=== PATIENT | male | born 1955 | race Caucasian/White ===

== ENCOUNTER 2021-04-12 16:38 | Inpatient (IN) | payer SELFPAY ==
--- NOTE | 2021-04-12 17:00 | EDM.PDOC ---
ED HPI GENERAL MEDICAL PROBLEM - General Chief Complaint: Neuro Symptoms/Deficits Stated Complaint: LT SIDE NUMB, SLURRING WORDS Time Seen by Provider: 04/12/21 16:50 Source of Information: Reports: Patient History Limitations: Reports: No Limitations - History of Present Illness INITIAL COMMENTS - FREE TEXT/NARRATIVE: Patient is a 65-year-old male who presented as a stroke alert. Patient has some left arm numbness and said he felt different also some left-sided facial droop. History with his daughter is speech was changed place patient is speaking clearly here. Patient denies any right-sided weakness or numbness no vision changes or sensation changes. - Related Data Allergies Allergy/AdvReac Type Severity Reaction Status Date / Time No Known Allergies Allergy Verified 04/12/21 17:20 Home Meds: Home Meds Cyanocobalamin (Vitamin B-12) [Vitamin B-12] 04/12/21 [History] Furosemide [Lasix] 20 mg PO 04/12/21 [History] Metoprolol Succinate 50 mg PO 04/12/21 [History] Spironolactone [Aldactone] 25 mg PO 04/12/21 [History] lisinopriL [Lisinopril] 10 mg PO 04/12/21 [History] ED ROS GENERAL - Review of Systems Review Of Systems: See Below Constitutional: Reports: No Symptoms HEENT: Reports: No Symptoms Respiratory: Reports: No Symptoms Cardiovascular: Reports: No Symptoms Endocrine: Reports: No Symptoms GI/Abdominal: Reports: No Symptoms : Reports: No Symptoms Musculoskeletal: Reports: No Symptoms Skin: Reports: No Symptoms Neurological: Reports: Numbness, Weakness Psychiatric: Reports: No Symptoms Hematologic/Lymphatic: Reports: No Symptoms Immunologic: Reports: No Symptoms ED EXAM, NEURO - Physical Exam Exam: See Below Exam Limited By: No Limitations General Appearance: Alert, WD/WN, No Apparent Distress Eye Exam: Bilateral Eye: EOMI, PERRL Throat/Mouth: Normal Inspection Head Exam: Atraumatic Neck: Normal Inspection Respiratory/Chest: No Respiratory Distress, Lungs Clear, Normal Breath Sounds Cardiovascular: Normal Peripheral Pulses, Regular Rate, Rhythm GI/Abdominal: Normal Bowel Sounds, Soft, Non-Tender Neurological: Alert, Normal Mood/Affect, Normal Dorsiflexion, CN II-XII Intact, Normal Plantar Flexion, Normal Gait, Normal Reflexes, Oriented x 3, Abnormal Motor (Slight weakness of left upper extremity only other extremities strength 5 out of 5) Extremities: Normal Inspection Course - Vital Signs Last Recorded V/S: Last Vital Signs Temp 96.5 F L 04/12/21 16:40 Pulse 83 04/12/21 18:21 Resp 20 04/12/21 16:40 BP 140/72 04/12/21 18:21 Pulse Ox 96 04/12/21 18:21 - Orders/Labs/Meds Orders: Active Orders 24 hr Category Date Time Status CORONAVIRUS COVID-19 MAGAN [MOLEC] Stat Lab 04/12/21 18:00 Received Labs: Laboratory Tests 04/12/21 04/12/21 04/12/21 Range/Units 16:48 16:48 17:54 WBC 8.84 (4.0-11.0) K/uL RBC 4.70 (4.50-5.90) M/uL Hgb 12.2 L (13.0-17.0) g/dL Hct 39.9 (38.0-50.0) % MCV 84.9 (80.0-98.0) fL MCH 26.0 L (27.0-32.0) pg MCHC 30.6 L (31.0-37.0) g/dL RDW Std Deviation 48.5 (28.0-62.0) fl RDW Coeff of Kassie 16 H (11.0-15.0) % Plt Count 214 (150-400) K/uL MPV 10.10 (7.40-12.00) fL Neut % (Auto) 72.5 (48.0-80.0) % Lymph % (Auto) 16.6 (16.0-40.0) % [place] % (Auto) 6.2 (0.0-15.0) % Eos % (Auto) 4.2 (0.0-7.0) % Baso % (Auto) 0.5 (0.0-1.5) % Neut # (Auto) 6.4 H (1.4-5.7) K/uL Lymph # (Auto) 1.5 (0.6-2.4) K/uL [place] # (Auto) 0.6 (0.0-0.8) K/uL Eos # (Auto) 0.4 (0.0-0.7) K/uL Baso # (Auto) 0.0 (0.0-0.1) K/uL Nucleated RBC % 0.0 /100WBC Nucleated RBCs # 0 K/uL Sodium 141 (136-148) mmol/L Potassium 4.6 (3.5-5.1) mmol/L Chloride 105 (98-107) mmol/L Carbon Dioxide 31.0 (21.0-32.0) mmol/L BUN 24 H (7.0-18.0) mg/dL Creatinine 1.0 (0.8-1.3) mg/dL Est Cr Clr Drug Dosing 78.44 mL/min Estimated GFR (MDRD) > 60.0 ml/min Glucose 134 H (74-106) mg/dL Calcium 8.5 (8.5-10.1) mg/dL Phosphorus 2.8 (2.6-4.7) mg/dL Magnesium 2.3 (1.8-2.4) mg/dL Total Bilirubin 0.3 (0.2-1.0) mg/dL AST 15 (15-37) IU/L ALT 32 (14-63) IU/L Alkaline Phosphatase 68 (46-116) U/L Total Protein 7.7 (6.4-8.2) g/dL Albumin 3.6 (3.4-5.0) g/dL Globulin 4.1 H (2.6-4.0) g/dL Albumin/Globulin Ratio 0.9 (0.9-1.6) Lipase 84 (73-393) U/L Urine Opiates Screen NEGATIVE (NEGATIVE) Ur Oxycodone Screen NEGATIVE (NEGATIVE) Urine Methadone Screen NEGATIVE (NEGATIVE) Ur Barbiturates Screen NEGATIVE (NEGATIVE) Ur Phencyclidine Scrn NEGATIVE (NEGATIVE) Ur Amphetamine Screen NEGATIVE (NEGATIVE) U Methamphetamines Scrn NEGATIVE (NEGATIVE) U Benzodiazepines Scrn NEGATIVE (NEGATIVE) U Cocaine Metab Screen NEGATIVE (NEGATIVE) U Marijuana (THC) Screen NEGATIVE (NEGATIVE) Ethyl Alcohol < 3.0 mg/dL Meds: Medications Discontinued Medications Generic Name Dose Route Start Last Admin Trade Name Freq PRN Reason Stop Dose Admin Iopamidol 100 ml 04/12/21 17:22 04/12/21 17:22 Iopamidol 755 Mg/Ml 500 Ml Multipack Bottle IVPUSH 04/12/21 17:23 100 ml ONETIME STA Administration - Re-Assessments/Exams Free Text/Narrative Re-Assessment/Exam: 04/12/21 18:25 After discussion with the patient and his daughter about why we did not give TPA they agree with not use any medication as he only has some left arm numbness and has got good movement against raising his arm now which has improved his speech is still slightly slurred but his NIH stroke scale is low but did not warrant TPA at this time we will admit for MRI and further work-up. Departure - Departure Time of Disposition: 18:26 Disposition: Admitted As Inpatient 66 Condition: Good Clinical Impression: Stroke - Discharge Information *PRESCRIPTION DRUG MONITORING PROGRAM REVIEWED*: Not Applicable *COPY OF PRESCRIPTION DRUG MONITORING REPORT IN PATIENT BREANA: Not Applicable Instructions: Stroke Prevention Referrals: PCP,None [Primary Care Provider] - Forms: ED Department Discharge Critical Care Note - Critical Care Note Total Time (mins): 45 Comments: Critical Care Procedure Note Authorized and Performed by: Dr. Silverio Total critical care time: Approximately Due to a high probability of clinically significant, life threatening deterioration, the patient required my highest level of preparedness to intervene emergently and I personally spent this critical care time directly and personally managing the patient. This critical care time included obtaining a history; examining the patient; pulse oximetry; ordering and review of studies; arranging urgent treatment with development of a management plan; evaluation of patient's response to treatment; frequent reassessment; and, discussions with other providers. This critical care time was performed to assess and manage the high probability of imminent, life-threatening deterioration that could result in multi-organ failure. It was exclusive of separately billable procedures and treating other patients and teaching time. Sepsis Event Note (ED) - Focused Exam Vital Signs: Vital Signs Temp Pulse Resp BP Pulse Ox 04/12/21 18:21 83 140/72 96 04/12/21 17:45 82 130/58 L 97 04/12/21 16:50 75 127/63 96 04/12/21 16:40 96.5 F L 85 20 141/76 H 88 L - My Orders Last 24 Hours: My Active Orders 04/12/21 18:00 CORONAVIRUS COVID-19 MAGAN [MOLEC] Stat - Assessment/Plan Last 24 Hours: My Active Orders 04/12/21 18:00 CORONAVIRUS COVID-19 MAGAN [MOLEC] Stat Plan: Patient is a 65-year-old male who presents today for stroke alert. Patient has some left arm weakness patient has good strength in the other 3 extremities. He has a slight facial droop on the left side as patient is well. Will obtain CT his labs reassess at this time his NIH stroke scale the 2 at this time do not warrant TPA.
--- NOTE | 2021-04-12 17:16 | CT ---
INDICATION: Stroke. COMPARISON: None. TECHNIQUE: Noncontrast CT head. FINDINGS: Normal brain parenchymal morphology. Patchy low-attenuation change within the white matter consistent with chronic small ischemic changes. No acute intracranial hemorrhage, acute infarct, mass effect, or fracture. No midline shift. No abnormal ventricular dilatation. Normal calvarium and skull base. Visualized paranasal sinuses and mastoid air cells are clear. Mild degenerative changes of the bilateral temporomandibular joints. Normal orbits bilaterally. IMPRESSION: 1. No acute intracranial abnormality. 2. Normal brain parenchymal morphology. Chronic deep white matter small vessel ischemic changes Please note that all CT scans at this facility use dose modulation, iterative reconstruction, and/or weight-based dosing when appropriate to reduce radiation dose to as low as reasonably achievable. Dictated by Rubio Peraza MD @ 04/12/2021 5:14:40 PM (Electronically Signed)
[2021-04-12] MEDS ORDERED: Iopamidol 755 MG/ML 500 ML Multipack Bottle IVPUSH STA (17:22)
--- NOTE | 2021-04-12 17:22 | CT ---
DATE: 04/12/2021. CLINICAL HISTORY: Acute neurological deficit. TECHNIQUE: Standard helical CT image acquisition through the head and neck was performed after intravenous contrast bolus enhancement. Multiplanar reconstructed images were performed and interpreted. COMPARISON: None available. FINDINGS: The origins of the great vessels from the aortic arch are patent. The origins of the vertebral arteries are not well assessed due to artifact. The common carotid arteries are patent. Mild (less than 50 percent) atherosclerotic luminal stenosis of the proximal right internal carotid artery by NASCET criteria. The more distal cervical segments of the internal carotid arteries are patent. The cervical segments of the vertebral arteries are patent. No intracranial proximal large vessel occlusion or flow-limiting luminal stenosis. There is a 2 mm right MCA bifurcation aneurysm. The visualized lung apices are unremarkable. Left-sided cardiac pacer. The thyroid gland is unremarkable. Degenerative changes of the cervical spine. IMPRESSION: 1. No intracranial proximal large vessel occlusion or flow-limiting luminal stenosis. 2. Mild (less than 50 percent) atherosclerotic luminal stenosis of the proximal right ICA by NASCET criteria. 3. 2mm right MCA bifurcation aneurysm. For consultation with our Neurointerventional service at [facility], for enrollment into our aneurysm surveillance program, please call [phone] to schedule a telehealth appointment. Please note that all CT scans at this facility use dose modulation, iterative reconstruction, and/or weight-based dosing when appropriate to reduce radiation dose to as low as reasonably achievable. Dictated by Felipe Salguero MD @ 04/12/2021 10:09:52 PM (Electronically Signed)
--- NOTE | 2021-04-12 17:22 | CT ---
DATE: 04/12/2021. CLINICAL HISTORY: Acute neurological deficit. TECHNIQUE: Standard helical CT image acquisition through the head and neck was performed after intravenous contrast bolus enhancement. Multiplanar reconstructed images were performed and interpreted. COMPARISON: None available. FINDINGS: The origins of the great vessels from the aortic arch are patent. The origins of the vertebral arteries are not well assessed due to artifact. The common carotid arteries are patent. Mild (less than 50 percent) atherosclerotic luminal stenosis of the proximal right internal carotid artery by NASCET criteria. The more distal cervical segments of the internal carotid arteries are patent. The cervical segments of the vertebral arteries are patent. No intracranial proximal large vessel occlusion or flow-limiting luminal stenosis. There is a 2 mm right MCA bifurcation aneurysm. The visualized lung apices are unremarkable. Left-sided cardiac pacer. The thyroid gland is unremarkable. Degenerative changes of the cervical spine. IMPRESSION: 1. No intracranial proximal large vessel occlusion or flow-limiting luminal stenosis. 2. Mild (less than 50 percent) atherosclerotic luminal stenosis of the proximal right ICA by NASCET criteria. 3. 2mm right MCA bifurcation aneurysm. For consultation with our Neurointerventional service at [facility], for enrollment into our aneurysm surveillance program, please call [phone] to schedule a telehealth appointment. Please note that all CT scans at this facility use dose modulation, iterative reconstruction, and/or weight-based dosing when appropriate to reduce radiation dose to as low as reasonably achievable. Dictated by Felipe Salguero MD @ 04/12/2021 10:09:23 PM (Electronically Signed)
[2021-04-12 17:28] LABS: BLOOD UREA NITROGEN,BUN 24 mg/dL (7.0-18.0); CHLORIDE,CL 105 mmol/L (98-107); GLUCOSE RANDOM 134 mg/dL (74-106); LIPASE 84 U/L (73-393); POTASSIUM,K 4.6 mmol/L (3.5-5.1); SODIUM,NA 141 mmol/L (136-148)
--- NOTE | 2021-04-12 18:50 | PCM.EKG ---
#1 Interpretation EKG Date: 04/12/21 Time: 18:45 Rhythm: NSR Rate (Beats/Min): 71 ST-T: Normal
--- NOTE | 2021-04-12 19:52 | CR ---
HISTORY: Stroke. TECHNIQUE: One view of the chest. COMPARISON: No prior. FINDINGS: AICD. Heart size within normal limits. No acute lung infiltrate or pulmonary edema. No pneumothorax. No moderate or large pleural effusion. IMPRESSION: 1. No acute disease. 2. AICD. Dictated by Lauro Naqvi MD @ 04/12/2021 7:51:48 PM Dictated by: Lauro Naqvi MD @ 04/12/2021 19:51:52 (Electronically Signed)
--- NOTE | 2021-04-12 21:53 | PCM.HP.2 ---
H&P History of Present Illness - General Date of Service: 04/12/21 Admit Problem/Dx: Admission Diagnosis/Problem Admission Diagnosis/Problem Stroke-like symptoms - History of Present Illness Initial Comments - Free Text/Narative: 65 yo male with pmh of CHF, pacemaker defibrillator, and a.fib who presents to the ED with complaints of right arm weakness. Patient reports he is unable to control his hand and is moves his hand past the point he wants. CT of the head reports no acute intracranial abnormality. CTA head and neck reports no high grade stenosis or occlusion. Patient reports he has been on Coumadin in the past but he did not tolerate it well and is unable to give specifics of why it was stopped. - Related Data Allergies/Adverse Reactions: Allergies Allergy/AdvReac Type Severity Reaction Status Date / Time No Known Allergies Allergy Verified 04/12/21 17:20 Home Medications: Home Meds Cyanocobalamin (Vitamin B-12) [Vitamin B-12] 04/12/21 [History] Furosemide [Lasix] 20 mg PO 04/12/21 [History] Metoprolol Succinate 50 mg PO 04/12/21 [History] Spironolactone [Aldactone] 25 mg PO 04/12/21 [History] lisinopriL [Lisinopril] 10 mg PO 04/12/21 [History] Past Medical History Cardiovascular History: Reports: Afib - Infectious Disease History Infectious Disease History: Reports: None - Past Surgical History Other GI Surgeries/Procedures: gastric bypass surgery Social & Family History - Family History Family Medical History: No Pertinent Family History - Tobacco Use Tobacco Use Status *Q: Current Every Day Tobacco User Years of Tobacco use: 50 Packs/Tins Daily: 1 H&P Review of Systems - Review of Systems: Review Of Systems: Comprehensive ROS is negative, except as noted in HPI. 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 has finger past pointing) - Patient Data Lab Results Last 24 hrs: Laboratory Results - last 24 hr 04/12/21 04/12/21 04/12/21 Range/Units 16:48 16:48 17:54 WBC 8.84 (4.0-11.0) K/uL RBC 4.70 (4.50-5.90) M/uL Hgb 12.2 L (13.0-17.0) g/dL Hct 39.9 (38.0-50.0) % MCV 84.9 (80.0-98.0) fL MCH 26.0 L (27.0-32.0) pg MCHC 30.6 L (31.0-37.0) g/dL RDW Std Deviation 48.5 (28.0-62.0) fl RDW Coeff of Kassie 16 H (11.0-15.0) % Plt Count 214 (150-400) K/uL MPV 10.10 (7.40-12.00) fL Neut % (Auto) 72.5 (48.0-80.0) % Lymph % (Auto) 16.6 (16.0-40.0) % [place] % (Auto) 6.2 (0.0-15.0) % Eos % (Auto) 4.2 (0.0-7.0) % Baso % (Auto) 0.5 (0.0-1.5) % Neut # (Auto) 6.4 H (1.4-5.7) K/uL Lymph # (Auto) 1.5 (0.6-2.4) K/uL [place] # (Auto) 0.6 (0.0-0.8) K/uL Eos # (Auto) 0.4 (0.0-0.7) K/uL Baso # (Auto) 0.0 (0.0-0.1) K/uL Nucleated RBC % 0.0 /100WBC Nucleated RBCs # 0 K/uL Sodium 141 (136-148) mmol/L Potassium 4.6 (3.5-5.1) mmol/L Chloride 105 (98-107) mmol/L Carbon Dioxide 31.0 (21.0-32.0) mmol/L BUN 24 H (7.0-18.0) mg/dL Creatinine 1.0 (0.8-1.3) mg/dL Est Cr Clr Drug Dosing 78.44 mL/min Estimated GFR (MDRD) > 60.0 ml/min Glucose 134 H (74-106) mg/dL Calcium 8.5 (8.5-10.1) mg/dL Phosphorus 2.8 (2.6-4.7) mg/dL Magnesium 2.3 (1.8-2.4) mg/dL Total Bilirubin 0.3 (0.2-1.0) mg/dL AST 15 (15-37) IU/L ALT 32 (14-63) IU/L Alkaline Phosphatase 68 (46-116) U/L Total Protein 7.7 (6.4-8.2) g/dL Albumin 3.6 (3.4-5.0) g/dL Globulin 4.1 H (2.6-4.0) g/dL Albumin/Globulin Ratio 0.9 (0.9-1.6) Lipase 84 (73-393) U/L Urine Opiates Screen NEGATIVE (NEGATIVE) Ur Oxycodone Screen NEGATIVE (NEGATIVE) Urine Methadone Screen NEGATIVE (NEGATIVE) Ur Barbiturates Screen NEGATIVE (NEGATIVE) Ur Phencyclidine Scrn NEGATIVE (NEGATIVE) Ur Amphetamine Screen NEGATIVE (NEGATIVE) U Methamphetamines Scrn NEGATIVE (NEGATIVE) U Benzodiazepines Scrn NEGATIVE (NEGATIVE) U Cocaine Metab Screen NEGATIVE (NEGATIVE) U Marijuana (THC) Screen NEGATIVE (NEGATIVE) Ethyl Alcohol < 3.0 mg/dL SARS-CoV-2 RNA (MAGAN) (NEGATIVE) 04/12/21 Range/Units 18:00 WBC (4.0-11.0) K/uL RBC (4.50-5.90) M/uL Hgb (13.0-17.0) g/dL Hct (38.0-50.0) % MCV (80.0-98.0) fL MCH (27.0-32.0) pg MCHC (31.0-37.0) g/dL RDW Std Deviation (28.0-62.0) fl RDW Coeff of Kassie (11.0-15.0) % Plt Count (150-400) K/uL MPV (7.40-12.00) fL Neut % (Auto) (48.0-80.0) % Lymph % (Auto) (16.0-40.0) % [place] % (Auto) (0.0-15.0) % Eos % (Auto) (0.0-7.0) % Baso % (Auto) (0.0-1.5) % Neut # (Auto) (1.4-5.7) K/uL Lymph # (Auto) (0.6-2.4) K/uL [place] # (Auto) (0.0-0.8) K/uL Eos # (Auto) (0.0-0.7) K/uL Baso # (Auto) (0.0-0.1) K/uL Nucleated RBC % /100WBC Nucleated RBCs # K/uL Sodium (136-148) mmol/L Potassium (3.5-5.1) mmol/L Chloride (98-107) mmol/L Carbon Dioxide (21.0-32.0) mmol/L BUN (7.0-18.0) mg/dL Creatinine (0.8-1.3) mg/dL Est Cr Clr Drug Dosing mL/min Estimated GFR (MDRD) ml/min Glucose (74-106) mg/dL Calcium (8.5-10.1) mg/dL Phosphorus (2.6-4.7) mg/dL Magnesium (1.8-2.4) mg/dL Total Bilirubin (0.2-1.0) mg/dL AST (15-37) IU/L ALT (14-63) IU/L Alkaline Phosphatase (46-116) U/L Total Protein (6.4-8.2) g/dL Albumin (3.4-5.0) g/dL Globulin (2.6-4.0) g/dL Albumin/Globulin Ratio (0.9-1.6) Lipase (73-393) U/L Urine Opiates Screen (NEGATIVE) Ur Oxycodone Screen (NEGATIVE) Urine Methadone Screen (NEGATIVE) Ur Barbiturates Screen (NEGATIVE) Ur Phencyclidine Scrn (NEGATIVE) Ur Amphetamine Screen (NEGATIVE) U Methamphetamines Scrn (NEGATIVE) U Benzodiazepines Scrn (NEGATIVE) U Cocaine Metab Screen (NEGATIVE) U Marijuana (THC) Screen (NEGATIVE) Ethyl Alcohol mg/dL SARS-CoV-2 RNA (MAGAN) NEGATIVE (NEGATIVE) Result Diagrams: 04/13/21 05:20 04/13/21 05:20 Sepsis Event Note - Evaluation Sepsis Screening Result: No Definite Risk - Focused Exam Vital Signs: Vital Signs Temp Pulse Resp BP Pulse Ox 04/12/21 20:17 73 18 141/72 H 96 04/12/21 19:30 70 20 138/63 93 L 04/12/21 18:21 83 140/72 96 04/12/21 17:45 82 130/58 L 97 04/12/21 16:50 75 127/63 96 04/12/21 16:40 35.8 C L 85 20 141/76 H 88 L Problem List Initiated/Reviewed/Updated: Yes Orders Last 24hrs: Active Orders 24 hr Category Date Time Status Patient Status [ADT] Routine ADT 04/12/21 18:27 Active Antiembolic Devices [RC] PER UNIT ROUTINE Care 04/12/21 21:49 Ordered Oxygen Therapy [RC] PRN Care 04/12/21 21:45 Ordered Up ad Mary [RC] ASDIRECTED Care 04/12/21 21:45 Ordered VTE/DVT Education [RC] PER UNIT ROUTINE Care 04/12/21 21:45 Ordered Vital Signs [RC] Q4H Care 04/12/21 21:45 Ordered OT Evaluation and Treatment [CONS] Routine Cons 04/12/21 21:45 Ordered PT Evaluation and Treatment [CONS] Routine Cons 04/12/21 21:45 Ordered Regular Diet [DIET] Diet 04/12/21 Breakfast Ordered BASIC METABOLIC PANEL,BMP [CHEM] AM Lab 04/13/21 05:11 Ordered CBC W/O DIFF,HEMOGRAM [HEME] AM Lab 04/13/21 05:11 Ordered Furosemide [Lasix] Med 04/12/21 21:45 Unverified DOSE UNIT RTE FREQ Sequential Compression Device [OM.PC] Per Unit Routine Oth 04/12/21 21:46 Ordered Resuscitation Status Routine Resus Stat 04/12/21 21:45 Ordered Assessment/Plan Comment:: 65 yo male admitted for CVA. We will monitor on telemetry, treat with ASA, and consult PT/OT.
[2021-04-12] MEDS: Aspirin 325 MG Tab PO SCH (22:00)
[2021-04-13 06:58] LABS: BLOOD UREA NITROGEN,BUN 18 mg/dL (7.0-18.0); CARBON DIOXIDE,CO2 32.5 mmol/L (21.0-32.0); CHLORIDE,CL 104 mmol/L (98-107); GLUCOSE RANDOM 135 mg/dL (74-106); POTASSIUM,K 4.3 mmol/L (3.5-5.1); SODIUM,NA 140 mmol/L (136-148)
[2021-04-13] MEDS: Furosemide 20 MG Tab PO SCH (09:46)
--- NOTE | 2021-04-13 10:13 | PCM.PN ---
- General Info Date of Service: 04/13/21 - Review of Systems Systems Review Comment:: arm coordination improving, no shortness of breath, - Patient Data Vitals - Most Recent: Last Vital Signs Temp 35.6 C L 04/13/21 08:00 Pulse 72 04/13/21 08:00 Resp 20 04/13/21 08:00 BP 132/68 04/13/21 08:00 Pulse Ox 96 04/13/21 08:00 Weight - Most Recent: 140.614 kg I&O - Last 24 Hours: Intake & Output 04/12/21 04/13/21 04/13/21 22:59 06:59 14:59 Intake Total 250 Balance 250 Lab Results Last 24 Hours: Laboratory Results - last 24 hr 04/12/21 04/12/21 04/12/21 Range/Units 16:48 16:48 17:54 WBC 8.84 (4.0-11.0) K/uL RBC 4.70 (4.50-5.90) M/uL Hgb 12.2 L (13.0-17.0) g/dL Hct 39.9 (38.0-50.0) % MCV 84.9 (80.0-98.0) fL MCH 26.0 L (27.0-32.0) pg MCHC 30.6 L (31.0-37.0) g/dL RDW Std Deviation 48.5 (28.0-62.0) fl RDW Coeff of Kassie 16 H (11.0-15.0) % Plt Count 214 (150-400) K/uL MPV 10.10 (7.40-12.00) fL Neut % (Auto) 72.5 (48.0-80.0) % Lymph % (Auto) 16.6 (16.0-40.0) % Rooks % (Auto) 6.2 (0.0-15.0) % Eos % (Auto) 4.2 (0.0-7.0) % Baso % (Auto) 0.5 (0.0-1.5) % Neut # (Auto) 6.4 H (1.4-5.7) K/uL Lymph # (Auto) 1.5 (0.6-2.4) K/uL Rooks # (Auto) 0.6 (0.0-0.8) K/uL Eos # (Auto) 0.4 (0.0-0.7) K/uL Baso # (Auto) 0.0 (0.0-0.1) K/uL Nucleated RBC % 0.0 /100WBC Nucleated RBCs # 0 K/uL Sodium 141 (136-148) mmol/L Potassium 4.6 (3.5-5.1) mmol/L Chloride 105 (98-107) mmol/L Carbon Dioxide 31.0 (21.0-32.0) mmol/L BUN 24 H (7.0-18.0) mg/dL Creatinine 1.0 (0.8-1.3) mg/dL Est Cr Clr Drug Dosing 78.44 mL/min Estimated GFR (MDRD) > 60.0 ml/min Glucose 134 H (74-106) mg/dL Calcium 8.5 (8.5-10.1) mg/dL Phosphorus 2.8 (2.6-4.7) mg/dL Magnesium 2.3 (1.8-2.4) mg/dL Total Bilirubin 0.3 (0.2-1.0) mg/dL AST 15 (15-37) IU/L ALT 32 (14-63) IU/L Alkaline Phosphatase 68 (46-116) U/L Total Protein 7.7 (6.4-8.2) g/dL Albumin 3.6 (3.4-5.0) g/dL Globulin 4.1 H (2.6-4.0) g/dL Albumin/Globulin Ratio 0.9 (0.9-1.6) Lipase 84 (73-393) U/L Urine Opiates Screen NEGATIVE (NEGATIVE) Ur Oxycodone Screen NEGATIVE (NEGATIVE) Urine Methadone Screen NEGATIVE (NEGATIVE) Ur Barbiturates Screen NEGATIVE (NEGATIVE) Ur Phencyclidine Scrn NEGATIVE (NEGATIVE) Ur Amphetamine Screen NEGATIVE (NEGATIVE) U Methamphetamines Scrn NEGATIVE (NEGATIVE) U Benzodiazepines Scrn NEGATIVE (NEGATIVE) U Cocaine Metab Screen NEGATIVE (NEGATIVE) U Marijuana (THC) Screen NEGATIVE (NEGATIVE) Ethyl Alcohol < 3.0 mg/dL SARS-CoV-2 RNA (MAGAN) (NEGATIVE) 04/12/21 04/13/21 04/13/21 Range/Units 18:00 05:20 05:20 WBC 6.61 (4.0-11.0) K/uL RBC 4.52 (4.50-5.90) M/uL Hgb 11.7 L (13.0-17.0) g/dL Hct 39.0 (38.0-50.0) % MCV 86.3 (80.0-98.0) fL MCH 25.9 L (27.0-32.0) pg MCHC 30.0 L (31.0-37.0) g/dL RDW Std Deviation 50.3 (28.0-62.0) fl RDW Coeff of Kassie 16 H (11.0-15.0) % Plt Count 209 (150-400) K/uL MPV 10.90 (7.40-12.00) fL Neut % (Auto) (48.0-80.0) % Lymph % (Auto) (16.0-40.0) % Rooks % (Auto) (0.0-15.0) % Eos % (Auto) (0.0-7.0) % Baso % (Auto) (0.0-1.5) % Neut # (Auto) (1.4-5.7) K/uL Lymph # (Auto) (0.6-2.4) K/uL Rooks # (Auto) (0.0-0.8) K/uL Eos # (Auto) (0.0-0.7) K/uL Baso # (Auto) (0.0-0.1) K/uL Nucleated RBC % 0.0 /100WBC Nucleated RBCs # 0 K/uL Sodium 140 (136-148) mmol/L Potassium 4.3 (3.5-5.1) mmol/L Chloride 104 (98-107) mmol/L Carbon Dioxide 32.5 H (21.0-32.0) mmol/L BUN 18 (7.0-18.0) mg/dL Creatinine 0.7 L (0.8-1.3) mg/dL Est Cr Clr Drug Dosing 118.90 mL/min Estimated GFR (MDRD) > 60.0 ml/min Glucose 135 H (74-106) mg/dL Calcium 8.5 (8.5-10.1) mg/dL Phosphorus (2.6-4.7) mg/dL Magnesium (1.8-2.4) mg/dL Total Bilirubin (0.2-1.0) mg/dL AST (15-37) IU/L ALT (14-63) IU/L Alkaline Phosphatase (46-116) U/L Total Protein (6.4-8.2) g/dL Albumin (3.4-5.0) g/dL Globulin (2.6-4.0) g/dL Albumin/Globulin Ratio (0.9-1.6) Lipase (73-393) U/L Urine Opiates Screen (NEGATIVE) Ur Oxycodone Screen (NEGATIVE) Urine Methadone Screen (NEGATIVE) Ur Barbiturates Screen (NEGATIVE) Ur Phencyclidine Scrn (NEGATIVE) Ur Amphetamine Screen (NEGATIVE) U Methamphetamines Scrn (NEGATIVE) U Benzodiazepines Scrn (NEGATIVE) U Cocaine Metab Screen (NEGATIVE) U Marijuana (THC) Screen (NEGATIVE) Ethyl Alcohol mg/dL SARS-CoV-2 RNA (MAGAN) NEGATIVE (NEGATIVE) 04/13/21 Range/Units 05:20 WBC (4.0-11.0) K/uL RBC (4.50-5.90) M/uL Hgb (13.0-17.0) g/dL Hct (38.0-50.0) % MCV (80.0-98.0) fL MCH (27.0-32.0) pg MCHC (31.0-37.0) g/dL RDW Std Deviation (28.0-62.0) fl RDW Coeff of Kassie (11.0-15.0) % Plt Count (150-400) K/uL MPV (7.40-12.00) fL Neut % (Auto) (48.0-80.0) % Lymph % (Auto) (16.0-40.0) % Rooks % (Auto) (0.0-15.0) % Eos % (Auto) (0.0-7.0) % Baso % (Auto) (0.0-1.5) % Neut # (Auto) (1.4-5.7) K/uL Lymph # (Auto) (0.6-2.4) K/uL Rooks # (Auto) (0.0-0.8) K/uL Eos # (Auto) (0.0-0.7) K/uL Baso # (Auto) (0.0-0.1) K/uL Nucleated RBC % /100WBC Nucleated RBCs # K/uL Sodium (136-148) mmol/L Potassium (3.5-5.1) mmol/L Chloride (98-107) mmol/L Carbon Dioxide (21.0-32.0) mmol/L BUN (7.0-18.0) mg/dL Creatinine (0.8-1.3) mg/dL Est Cr Clr Drug Dosing mL/min Estimated GFR (MDRD) ml/min Glucose (74-106) mg/dL Calcium (8.5-10.1) mg/dL Phosphorus (2.6-4.7) mg/dL Magnesium 2.3 (1.8-2.4) mg/dL Total Bilirubin (0.2-1.0) mg/dL AST (15-37) IU/L ALT (14-63) IU/L Alkaline Phosphatase (46-116) U/L Total Protein (6.4-8.2) g/dL Albumin (3.4-5.0) g/dL Globulin (2.6-4.0) g/dL Albumin/Globulin Ratio (0.9-1.6) Lipase (73-393) U/L Urine Opiates Screen (NEGATIVE) Ur Oxycodone Screen (NEGATIVE) Urine Methadone Screen (NEGATIVE) Ur Barbiturates Screen (NEGATIVE) Ur Phencyclidine Scrn (NEGATIVE) Ur Amphetamine Screen (NEGATIVE) U Methamphetamines Scrn (NEGATIVE) U Benzodiazepines Scrn (NEGATIVE) U Cocaine Metab Screen (NEGATIVE) U Marijuana (THC) Screen (NEGATIVE) Ethyl Alcohol mg/dL SARS-CoV-2 RNA (MAGAN) (NEGATIVE) Med Orders - Current: Current Medications Aspirin (Aspirin 325 Mg Tab) 325 mg PO DAILY [facility] Last Admin: 04/12/21 22:00 Dose: 325 mg Documented by: Atorvastatin Calcium (Atorvastatin 40 Mg Tab) 80 mg PO BEDTIME [facility] Furosemide (Furosemide 20 Mg Tab) 20 mg PO DAILY [facility] Last Admin: 04/13/21 09:46 Dose: 20 mg Documented by: Discontinued Medications Iopamidol (Iopamidol 755 Mg/Ml 500 Ml Multipack Bottle) 100 ml IVPUSH ONETIME STA Stop: 04/12/21 17:23 Last Admin: 04/12/21 17:22 Dose: 100 ml Documented by: - Exam General: Alert, Oriented Neck: Supple Lungs: Clear to Auscultation, Normal Respiratory Effort Cardiovascular: Regular Rate, Regular Rhythm GI/Abdominal Exam: Soft, Non-Tender, No Distention Extremities: Non-Tender, No Pedal Edema Skin: Warm, Dry, Intact Neurological: Other (left finger past pointing has improved) - Patient Data Lab Results Last 24 hrs: Laboratory Results - last 24 hr 04/12/21 04/12/21 04/12/21 Range/Units 16:48 16:48 17:54 WBC 8.84 (4.0-11.0) K/uL RBC 4.70 (4.50-5.90) M/uL Hgb 12.2 L (13.0-17.0) g/dL Hct 39.9 (38.0-50.0) % MCV 84.9 (80.0-98.0) fL MCH 26.0 L (27.0-32.0) pg MCHC 30.6 L (31.0-37.0) g/dL RDW Std Deviation 48.5 (28.0-62.0) fl RDW Coeff of Kassie 16 H (11.0-15.0) % Plt Count 214 (150-400) K/uL MPV 10.10 (7.40-12.00) fL Neut % (Auto) 72.5 (48.0-80.0) % Lymph % (Auto) 16.6 (16.0-40.0) % Rooks % (Auto) 6.2 (0.0-15.0) % Eos % (Auto) 4.2 (0.0-7.0) % Baso % (Auto) 0.5 (0.0-1.5) % Neut # (Auto) 6.4 H (1.4-5.7) K/uL Lymph # (Auto) 1.5 (0.6-2.4) K/uL Rooks # (Auto) 0.6 (0.0-0.8) K/uL Eos # (Auto) 0.4 (0.0-0.7) K/uL Baso # (Auto) 0.0 (0.0-0.1) K/uL Nucleated RBC % 0.0 /100WBC Nucleated RBCs # 0 K/uL Sodium 141 (136-148) mmol/L Potassium 4.6 (3.5-5.1) mmol/L Chloride 105 (98-107) mmol/L Carbon Dioxide 31.0 (21.0-32.0) mmol/L BUN 24 H (7.0-18.0) mg/dL Creatinine 1.0 (0.8-1.3) mg/dL Est Cr Clr Drug Dosing 78.44 mL/min Estimated GFR (MDRD) > 60.0 ml/min Glucose 134 H (74-106) mg/dL Calcium 8.5 (8.5-10.1) mg/dL Phosphorus 2.8 (2.6-4.7) mg/dL Magnesium 2.3 (1.8-2.4) mg/dL Total Bilirubin 0.3 (0.2-1.0) mg/dL AST 15 (15-37) IU/L ALT 32 (14-63) IU/L Alkaline Phosphatase 68 (46-116) U/L Total Protein 7.7 (6.4-8.2) g/dL Albumin 3.6 (3.4-5.0) g/dL Globulin 4.1 H (2.6-4.0) g/dL Albumin/Globulin Ratio 0.9 (0.9-1.6) Lipase 84 (73-393) U/L Urine Opiates Screen NEGATIVE (NEGATIVE) Ur Oxycodone Screen NEGATIVE (NEGATIVE) Urine Methadone Screen NEGATIVE (NEGATIVE) Ur Barbiturates Screen NEGATIVE (NEGATIVE) Ur Phencyclidine Scrn NEGATIVE (NEGATIVE) Ur Amphetamine Screen NEGATIVE (NEGATIVE) U Methamphetamines Scrn NEGATIVE (NEGATIVE) U Benzodiazepines Scrn NEGATIVE (NEGATIVE) U Cocaine Metab Screen NEGATIVE (NEGATIVE) U Marijuana (THC) Screen NEGATIVE (NEGATIVE) Ethyl Alcohol < 3.0 mg/dL SARS-CoV-2 RNA (MAGAN) (NEGATIVE) 04/12/21 04/13/21 04/13/21 Range/Units 18:00 05:20 05:20 WBC 6.61 (4.0-11.0) K/uL RBC 4.52 (4.50-5.90) M/uL Hgb 11.7 L (13.0-17.0) g/dL Hct 39.0 (38.0-50.0) % MCV 86.3 (80.0-98.0) fL MCH 25.9 L (27.0-32.0) pg MCHC 30.0 L (31.0-37.0) g/dL RDW Std Deviation 50.3 (28.0-62.0) fl RDW Coeff of Kassie 16 H (11.0-15.0) % Plt Count 209 (150-400) K/uL MPV 10.90 (7.40-12.00) fL Neut % (Auto) (48.0-80.0) % Lymph % (Auto) (16.0-40.0) % Rooks % (Auto) (0.0-15.0) % Eos % (Auto) (0.0-7.0) % Baso % (Auto) (0.0-1.5) % Neut # (Auto) (1.4-5.7) K/uL Lymph # (Auto) (0.6-2.4) K/uL Rooks # (Auto) (0.0-0.8) K/uL Eos # (Auto) (0.0-0.7) K/uL Baso # (Auto) (0.0-0.1) K/uL Nucleated RBC % 0.0 /100WBC Nucleated RBCs # 0 K/uL Sodium 140 (136-148) mmol/L Potassium 4.3 (3.5-5.1) mmol/L Chloride 104 (98-107) mmol/L Carbon Dioxide 32.5 H (21.0-32.0) mmol/L BUN 18 (7.0-18.0) mg/dL Creatinine 0.7 L (0.8-1.3) mg/dL Est Cr Clr Drug Dosing 118.90 mL/min Estimated GFR (MDRD) > 60.0 ml/min Glucose 135 H (74-106) mg/dL Calcium 8.5 (8.5-10.1) mg/dL Phosphorus (2.6-4.7) mg/dL Magnesium (1.8-2.4) mg/dL Total Bilirubin (0.2-1.0) mg/dL AST (15-37) IU/L ALT (14-63) IU/L Alkaline Phosphatase (46-116) U/L Total Protein (6.4-8.2) g/dL Albumin (3.4-5.0) g/dL Globulin (2.6-4.0) g/dL Albumin/Globulin Ratio (0.9-1.6) Lipase (73-393) U/L Urine Opiates Screen (NEGATIVE) Ur Oxycodone Screen (NEGATIVE) Urine Methadone Screen (NEGATIVE) Ur Barbiturates Screen (NEGATIVE) Ur Phencyclidine Scrn (NEGATIVE) Ur Amphetamine Screen (NEGATIVE) U Methamphetamines Scrn (NEGATIVE) U Benzodiazepines Scrn (NEGATIVE) U Cocaine Metab Screen (NEGATIVE) U Marijuana (THC) Screen (NEGATIVE) Ethyl Alcohol mg/dL SARS-CoV-2 RNA (MAGAN) NEGATIVE (NEGATIVE) 04/13/21 Range/Units 05:20 WBC (4.0-11.0) K/uL RBC (4.50-5.90) M/uL Hgb (13.0-17.0) g/dL Hct (38.0-50.0) % MCV (80.0-98.0) fL MCH (27.0-32.0) pg MCHC (31.0-37.0) g/dL RDW Std Deviation (28.0-62.0) fl RDW Coeff of Kassie (11.0-15.0) % Plt Count (150-400) K/uL MPV (7.40-12.00) fL Neut % (Auto) (48.0-80.0) % Lymph % (Auto) (16.0-40.0) % Rooks % (Auto) (0.0-15.0) % Eos % (Auto) (0.0-7.0) % Baso % (Auto) (0.0-1.5) % Neut # (Auto) (1.4-5.7) K/uL Lymph # (Auto) (0.6-2.4) K/uL Rooks # (Auto) (0.0-0.8) K/uL Eos # (Auto) (0.0-0.7) K/uL Baso # (Auto) (0.0-0.1) K/uL Nucleated RBC % /100WBC Nucleated RBCs # K/uL Sodium (136-148) mmol/L Potassium (3.5-5.1) mmol/L Chloride (98-107) mmol/L Carbon Dioxide (21.0-32.0) mmol/L BUN (7.0-18.0) mg/dL Creatinine (0.8-1.3) mg/dL Est Cr Clr Drug Dosing mL/min Estimated GFR (MDRD) ml/min Glucose (74-106) mg/dL Calcium (8.5-10.1) mg/dL Phosphorus (2.6-4.7) mg/dL Magnesium 2.3 (1.8-2.4) mg/dL Total Bilirubin (0.2-1.0) mg/dL AST (15-37) IU/L ALT (14-63) IU/L Alkaline Phosphatase (46-116) U/L Total Protein (6.4-8.2) g/dL Albumin (3.4-5.0) g/dL Globulin (2.6-4.0) g/dL Albumin/Globulin Ratio (0.9-1.6) Lipase (73-393) U/L Urine Opiates Screen (NEGATIVE) Ur Oxycodone Screen (NEGATIVE) Urine Methadone Screen (NEGATIVE) Ur Barbiturates Screen (NEGATIVE) Ur Phencyclidine Scrn (NEGATIVE) Ur Amphetamine Screen (NEGATIVE) U Methamphetamines Scrn (NEGATIVE) U Benzodiazepines Scrn (NEGATIVE) U Cocaine Metab Screen (NEGATIVE) U Marijuana (THC) Screen (NEGATIVE) Ethyl Alcohol mg/dL SARS-CoV-2 RNA (MAGAN) (NEGATIVE) Result Diagrams: 04/13/21 05:20 04/13/21 05:20 Sepsis Event Note - Evaluation Sepsis Screening Result: No Definite Risk - Focused Exam Vital Signs: Vital Signs Temp Pulse Resp BP Pulse Ox 04/13/21 08:00 35.6 C L 72 20 132/68 96 04/13/21 04:10 36.1 C 62 21 H 147/67 H 96 04/13/21 00:08 36.1 C 71 18 140/69 93 L - Problem List Review Problem List Initiated/Reviewed/Updated: Yes - My Orders Last 24 Hours: My Active Orders 04/12/21 21:45 Oxygen Therapy [RC] PRN Up ad Mary [RC] ASDIRECTED VTE/DVT Education [RC] PER UNIT ROUTINE Vital Signs [RC] Q4H OT Evaluation and Treatment [CONS] Routine PT Evaluation and Treatment [CONS] Routine Resuscitation Status Routine 04/12/21 21:46 Sequential Compression Device [OM.PC] Per Unit Routine 04/12/21 21:49 Antiembolic Devices [RC] PER UNIT ROUTINE 04/12/21 22:00 Aspirin 325 mg PO DAILY 04/13/21 00:06 Telemetry Monitoring [Cardiac Monitoring] [RC] . DIRECTED 04/13/21 00:08 Cardiac Monitoring [RC] Q8HR 04/13/21 05:21 Obtain Past Medical Record [OM.PC] Routine 04/13/21 09:15 Furosemide [Lasix] 20 mg PO DAILY 04/13/21 19:00 Head wo Cont [CT] Routine 04/13/21 21:00 atorvaSTATin [Lipitor] 80 mg PO BEDTIME - Plan Plan:: 65 yo male with pmh of CHF admitted for CVA. CVA: due ot pacemaker/defibrilator unable to get MRI. Will recheck CT head. We will monitor on telemetry, treat with ASA, lipitor, and consult PT/OT. holding antihypertensive medications and allowing for permissive hypertension.
--- NOTE | 2021-04-13 20:46 | CT ---
INDICATION: Left arm weakness TECHNIQUE: Head CT without contrast. COMPARISON: None FINDINGS: CSF spaces: Within normal limits for age. Brain parenchyma: There are nonspecific low attenuation white matter changes consistent with chronic microvascular disease. No sign of mass, hemorrhage, or midline shift. Skull base and calvarium: The visualized paranasal sinuses and mastoid air cells demonstrate no acute or significant findings. The visualized orbits are grossly unremarkable. No skull fractures. There is intracranial atherosclerosis. IMPRESSION: 1. No acute findings. 2. Nonspecific white matter disease, typical of chronic microvascular disease. Please note that all CT scans at this facility use dose modulation, iterative reconstruction, and/or weight-based dosing when appropriate to reduce radiation dose to as low as reasonably achievable. Dictated by Jaquelin Roldan MD @ 04/13/2021 8:45:33 PM (Electronically Signed)
[2021-04-13] MEDS: atorvaSTATin 40 MG Tab PO SCH (21:20)
[2021-04-14] MEDS: Furosemide 20 MG Tab PO SCH (08:20)
[2021-04-14] MEDS: Aspirin 325 MG Tab PO SCH (08:20)
--- NOTE | 2021-04-14 11:32 | PCM.PN ---
- General Info Date of Service: 04/14/21 Subjective Update: The patient is a 65-year-old male, on day 3 of service, who has a significant past medical history of congestive heart failure, a pacemaker defibrillator, and atrial fibrillation, who was admitted to the medical floor due to CVA. Upon interview with the patient today, he explains that he has had left arm weakness for the past 3 days which is progressively improving. He has no other weakness, tingling, or numbness anywhere in the body. He denies slurred speech, voice or vision changes, loss of bladder or bowel control, headache, chest pain, or palpitations. Upon motor strength exercises with the patient today, he is 5 out of 5 on the right side for both the upper and lower extremity. He is 5 out of 5 for the left lower extremity. He is 3 out of 5 for the left upper extremity. His sensations are intact throughout the body. He is eating and drinking without any issues, and has no problems with urination and/or defecation. His pacemaker was placed in 2016, however he did not start any anticoagulation and has only been on aspirin. He will have a interrogation of his pacemaker done today. Today, in discussion with hospital neurologist, Dr. Uribe, it was decided that the patient should be started on anticoagulation and Eliquis has been initiated after discussions with the patient who agreed to its start. Dr. Uribe will also go see the patient later today and give her recommendations which will be followed by the medicine team. At bedside, via phone call with the patients daughter Nicole, discussions happened between her, myself, and attending physician Dr. Porter in regards to her fathers treatment plan, imaging findings, and questions were answered with respect to inquiries she had about her father. She will be updated on a daily basis. - Review of Systems General: Reports: Weakness. Denies: Fever, Fatigue Pulmonary: Denies: Shortness of Breath, Cough Cardiovascular: Denies: Chest Pain, Palpitations Gastrointestinal: Denies: Abdominal Pain Genitourinary: Denies: Dysuria Neurological: Reports: Weakness, Other (Left arm weakness without sensory deficits, motor and sensory preserved for the rest of the body). Denies: Dizziness, Numbness, Syncope, Change in Speech - Patient Data Vitals - Most Recent: Last Vital Signs Temp 96.1 F L 04/14/21 08:36 Pulse 67 04/14/21 08:36 Resp 20 04/14/21 08:36 BP 126/72 04/14/21 08:36 Pulse Ox 92 L 04/14/21 08:36 Weight - Most Recent: 310 lb I&O - Last 24 Hours: Intake & Output 04/13/21 04/14/21 04/14/21 22:59 06:59 14:59 Intake Total 1300 Output Total 1450 Balance -150 Med Orders - Current: Current Medications Apixaban (Apixaban 5 Mg Tab) 5 mg PO DAILY [facility] Atorvastatin Calcium (Atorvastatin 40 Mg Tab) 80 mg PO BEDTIME [facility] Last Admin: 04/13/21 21:20 Dose: 80 mg Documented by: Furosemide (Furosemide 20 Mg Tab) 20 mg PO DAILY [facility] Last Admin: 04/14/21 08:20 Dose: 20 mg Documented by: Discontinued Medications Aspirin (Aspirin 325 Mg Tab) 325 mg PO DAILY [facility] Last Admin: 04/14/21 08:20 Dose: 325 mg Documented by: Iopamidol (Iopamidol 755 Mg/Ml 500 Ml Multipack Bottle) 100 ml IVPUSH ONETIME STA Stop: 04/12/21 17:23 Last Admin: 04/12/21 17:22 Dose: 100 ml Documented by: - Exam General: Alert, Oriented, Cooperative HEENT: Mucous Membr. Moist/[place] Neck: No: Carotid Bruit Lungs: Clear to Auscultation, Normal Respiratory Effort Cardiovascular: Regular Rate, Regular Rhythm GI/Abdominal Exam: Normal Bowel Sounds, Soft, Non-Tender Neurological: Normal Speech, Sensation Intact, Cranial Nerves Intact, Other (3 out of 5 strength for left upper extremity, 5 out of 5 strength for right upper extremity, 5 out of 5 strength for both lower extremities) - Patient Data Result Diagrams: 04/13/21 05:20 04/13/21 05:20 Sepsis Event Note - Evaluation Sepsis Screening Result: No Definite Risk - Focused Exam Vital Signs: Vital Signs Temp Pulse Resp BP Pulse Ox 04/14/21 08:36 96.1 F L 67 20 126/72 92 L 04/14/21 00:24 97.6 F 73 20 103/53 L 90 L - Problem List & Annotations (1) Afib SNOMED Code(s): 64264702 Code(s): I48.91 - UNSPECIFIED ATRIAL FIBRILLATION Status: Acute Current Visit: Yes (2) CHF (congestive heart failure) SNOMED Code(s): 19198770 Code(s): I50.9 - HEART FAILURE, UNSPECIFIED Status: Acute Current Visit: Yes (3) Pacemaker SNOMED Code(s): 216357022 Code(s): Z95.0 - PRESENCE OF CARDIAC PACEMAKER Status: Acute Current Visit: Yes (4) Stroke SNOMED Code(s): 934303259 Code(s): I63.9 - CEREBRAL INFARCTION, UNSPECIFIED Status: Acute Current Visit: Yes - Problem List Review Problem List Initiated/Reviewed/Updated: Yes - My Orders Last 24 Hours: My Active Orders 04/14/21 10:45 Consult to Physician [CONS] Routine 04/14/21 10:46 Notify Provider Consults [RC] ASDIRECTED 04/14/21 11:30 Apixaban [Eliquis] 5 mg PO DAILY 04/15/21 05:11 BASIC METABOLIC PANEL,BMP [CHEM] AM CBC WITH AUTO DIFF [HEME] AM - Assessment Assessment:: 1. CVA -Dr. Uribe, [facility] neurologist was consulted today in regards to this patient and will see him sometime this afternoon. We will follow her recommendations moving forward. -For now we have initiated the patient on Eliquis 5 mg per oral route twice daily -We will continue the patient on telemetry/cardiac rehabilitation program director to assess anomalies -We will continue the patient on physical therapy and occupational therapy -The patient's hospital records are in [place] which we will obtain -An ECHO has also been ordered -Daily cbc/bmp 2. CHF -We will continue the patient on his home Lasix dose of 20 mg per oral route once a day 3. A. fib -The patient has a pacemaker defibrillator implanted and we will attempt interrogation
[2021-04-14] MEDS: Apixaban 5 MG Tab PO SCH ×2 (12:10→20:44)
--- NOTE | 2021-04-14 13:41 | PCM.CONS ---
H&P History of Present Illness - General Date of Service: 04/14/21 Admit Problem/Dx: Admission Diagnosis/Problem Admission Diagnosis/Problem Stroke-like symptoms - History of Present Illness Initial Comments - Free Text/Narative: 65 year old admitted for left upper limb weakness, numbness. On MondayApr 12, he worked his usual day. At about 3 pm, he developed weakness, numbness of the left arm. He could not feel throughout hand, forearm and arm and had no control. If he tried to touch his face, he would miss / hit him in the face. He presented to ED. In ED, speech was mildly slurred, and he was noted to have slight left facial droop. Strength had improved by the time he was evaluated. CT head was negative. CTA was negative for occlusion. TPA was not administered as deficits were mild (NIHSS 2) and improving. He had eval for PT CT head 04/12 and 04/13 showed nonspecific white matter changes, mostly likely small vessel disease CTA head and neck 04/12/2021 2 mm right MCA bifurcation aneurysm, mild stenosis proximal right ICA He has a history of atrial fibrillation. He has a pacemaker. Per his recall, angiogram of his heart did not show significant stenosis. He takes ASA 81 mg. Anticoagulation was not recommend per his recall. He was on warfarin years prior when he had his gastric bypass. No history of bleeding, but it was difficult to get level in range. He smokes 1 ppd. Head Pain Score (Numeric/FACES): 0 - Related Data Allergies/Adverse Reactions: Allergies Allergy/AdvReac Type Severity Reaction Status Date / Time No Known Allergies Allergy Verified 04/13/21 21:21 Home Medications: Home Meds Cyanocobalamin (Vitamin B-12) [Vitamin B-12] 1,000 mcg PO DAILY 04/12/21 [History] Furosemide [Lasix] 20 mg PO DAILY 04/12/21 [History] Metoprolol Succinate 50 mg PO DAILY 04/12/21 [History] Spironolactone [Aldactone] 0.5 mg PO DAILY 04/12/21 [History] lisinopriL [Lisinopril] 10 mg PO DAILY 04/12/21 [History] Multivit-Min/FA/Lycopen/Lutein [Centrum Silver Tablet] 2 tab PO DAILY 04/13/21 [History] Past Medical History Cardiovascular History: Reports: Afib, Heart Failure, Pacemaker Gastrointestinal History: Reports: Colon Polyp - Infectious Disease History Infectious Disease History: Reports: None - Past Surgical History Other GI Surgeries/Procedures: gastric bypass surgery Social & Family History - Family History Family Medical History: No Pertinent Family History - Tobacco Use Tobacco Use Status *Q: Current Every Day Tobacco User Years of Tobacco use: 50 Packs/Tins Daily: 1 - Caffeine Use Caffeine Use: Reports: Coffee - Recreational Drug Use Recreational Drug Use: No H&P Review of Systems - Review of Systems: Review Of Systems: Comprehensive ROS is negative, except as noted in HPI. Exam - Exam Exam: See Below - Vital Signs Vital Signs: Last Vital Signs Temp 35.7 C L 04/14/21 12:00 Pulse 76 04/14/21 12:00 Resp 22 H 04/14/21 12:00 BP 150/79 H 04/14/21 12:00 Pulse Ox 95 04/14/21 12:00 Weight: 140.614 kg - Exam Physical Exam Comments:: Mental Status: General: Normal activity, good hygiene, appropriate appearance. Level of consciousness: Awake, alert. Orientation: Oriented to person, place, time and situation. Concentration/Attention Span: Normal. Comprehension/Praxis: Able to perform a three step command. Fund of Knowledge/memory: Adequate recent and remote recall. Language: Fluent and articulate without evidence of aphasia or dysarthria. Thought Content: Normal. Insight/Judgement: Normal. Cranial Nerves: Pupils equally round and reactive to light. Visual terry full to confrontation. Gaze conjugate, EOMI. Sensation intact and symmetric to light touch. Facial strength is full and symmetric. Palate elevates symmetrically. Normal shrug bilaterally. Tongue protrudes midline Motor: Normal tone in all groups. No drift. Power 5/5 throughout. Sensation: Sensation is decreased to temp in feet. Temp symmetric in lower and upper limbs. Deep tendon reflexes: Normoactive throughout. Coordination: Finger to nose notable for slowness as his left finger approached targe. Heel to [place] and rapid alternating movements are intact. Gait: Normal casual gait. - Patient Data Result Diagrams: 04/13/21 05:20 04/13/21 05:20 Sepsis Event Note - Evaluation Sepsis Screening Result: No Definite Risk - Focused Exam Vital Signs: Vital Signs Temp Pulse Resp BP Pulse Ox 04/14/21 12:00 35.7 C L 76 22 H 150/79 H 95 04/14/21 08:36 35.6 C L 67 20 126/72 92 L Consult PN Assessment/Plan (1) Stroke SNOMED Code(s): 890900879 Code(s): I63.9 - CEREBRAL INFARCTION, UNSPECIFIED Current Visit: Yes Assessment:: Impression Acute onset LUE weakness, numbness, ataxia spontaneously improving most consistent with stroke. MRI contraindicated. CT negative but not sensitive for small infarct, particularly acutely. 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
[2021-04-14] MEDS: atorvaSTATin 40 MG Tab PO SCH (20:44)
[2021-04-15 08:13] LABS: BLOOD UREA NITROGEN,BUN 19 mg/dL (7.0-18.0); CARBON DIOXIDE,CO2 33.3 mmol/L (21.0-32.0); CHLORIDE,CL 103 mmol/L (98-107); GLUCOSE RANDOM 120 mg/dL (74-106); POTASSIUM,K 4.3 mmol/L (3.5-5.1); SODIUM,NA 140 mmol/L (136-148)
[2021-04-15] MEDS: Apixaban 5 MG Tab PO SCH (08:46)
[2021-04-15] MEDS: Furosemide 20 MG Tab PO SCH (08:46)
[2021-04-15 08:54] LABS: HEMOGLOBIN A1C 6.5 %
--- NOTE | 2021-04-15 17:40 | PCM.DCSUM1 ---
Discharge Summary - Discharge Data Discharge Date: 04/15/21 Discharge Disposition: Home, Self-Care 01 Condition: Stable - Referral to Home Health Primary Care Physician: PCP None - Patient Summary/Data Consults: Consultations 04/12/21 21:45 OT Evaluation and Treatment [CONS] Routine PT Evaluation and Treatment [CONS] Routine 04/14/21 10:45 Consult to Physician [CONS] Routine Hospital Course: 65 yo male with pmh of CHF, pacemaker defibrillator, and a.fib who presents to the ED with complaints of right arm weakness and with difficulty starting and s topping movement.. CT head 04/12 and 04/13 showed nonspecific white matter changes, mostly likely small vessel disease. CTA head and neck 04/12/2021 2 mm right MCA bifurcation aneurysm, mild stenosis proximal right ICA. He has a history of atrial fibrillation and is not on any anticoagulation before this admission for several years. He was started on Eliquis. His arm weakness has improved. He was discharged home to have follow up with Dr. Echavarria and Dr. Uribe. - Patient Instructions Diet: Regular Diet as Tolerated Activity: As Tolerated - Discharge Plan *PRESCRIPTION DRUG MONITORING PROGRAM REVIEWED*: Not Applicable *COPY OF PRESCRIPTION DRUG MONITORING REPORT IN PATIENT BREANA: Not Applicable Prescriptions/Med Rec: Apixaban [Eliquis] 5 mg PO BID #60 tablet atorvaSTATin [Lipitor] 40 mg PO BEDTIME #30 tablet Home Medications: Home Meds Cyanocobalamin (Vitamin B-12) [Vitamin B-12] 1,000 mcg PO DAILY 04/12/21 [History] Furosemide [Lasix] 20 mg PO DAILY 04/12/21 [History] Metoprolol Succinate 50 mg PO DAILY 04/12/21 [History] Spironolactone [Aldactone] 0.5 mg PO DAILY 04/12/21 [History] lisinopriL [Lisinopril] 10 mg PO DAILY 04/12/21 [History] Multivit-Min/FA/Lycopen/Lutein [Centrum Silver Tablet] 2 tab PO DAILY 04/13/21 [History] Apixaban [Eliquis] 5 mg PO BID #60 tablet 04/15/21 [Rx] atorvaSTATin [Lipitor] 40 mg PO BEDTIME #30 tablet 04/15/21 [Rx] Patient Handouts: Stroke Prevention, [id number] Referrals: Mario Agee MD [Physician] - 06/17/21 1:00 pm Rosanna Uribe MD [Physician] - (The neurology clinic will call you with your follow up appointment.) Cisco Caballero MD [Resident] - 04/27/21 2:00 pm - Discharge Summary/Plan Comment DC Time >30 min.: No Total # of Minutes for Discharge Time: 15 - Patient Data Vitals - Most Recent: Last Vital Signs Temp 35.7 C L 04/15/21 13:29 Pulse 89 04/15/21 13:29 Resp 20 04/15/21 13:29 BP 132/83 04/15/21 13:29 Pulse Ox 90 L 04/15/21 13:29 Weight - Most Recent: 140.614 kg I&O - Last 24 hours: Intake & Output 04/15/21 04/15/21 04/15/21 06:59 14:59 22:59 Intake Total 550 Output Total 850 Balance -300 Lab Results - Last 24 hrs: Laboratory Results - last 24 hr 04/15/21 04/15/21 04/15/21 Range/Units 06:20 06:20 06:20 WBC 7.15 (4.0-11.0) K/uL RBC 4.94 (4.50-5.90) M/uL Hgb 12.7 L (13.0-17.0) g/dL Hct 41.9 (38.0-50.0) % MCV 84.8 (80.0-98.0) fL MCH 25.7 L (27.0-32.0) pg MCHC 30.3 L (31.0-37.0) g/dL RDW Std Deviation 47.2 (28.0-62.0) fl RDW Coeff of Kassie 15 (11.0-15.0) % Plt Count 200 (150-400) K/uL MPV 11.10 (7.40-12.00) fL Neut % (Auto) 64.1 (48.0-80.0) % Lymph % (Auto) 21.5 (16.0-40.0) % Saline % (Auto) 8.1 (0.0-15.0) % Eos % (Auto) 5.7 (0.0-7.0) % Baso % (Auto) 0.6 (0.0-1.5) % Neut # (Auto) 4.6 (1.4-5.7) K/uL Lymph # (Auto) 1.5 (0.6-2.4) K/uL Saline # (Auto) 0.6 (0.0-0.8) K/uL Eos # (Auto) 0.4 (0.0-0.7) K/uL Baso # (Auto) 0.0 (0.0-0.1) K/uL Nucleated RBC % 0.0 /100WBC Nucleated RBCs # 0 K/uL Sodium 140 (136-148) mmol/L Potassium 4.3 (3.5-5.1) mmol/L Chloride 103 (98-107) mmol/L Carbon Dioxide 33.3 H (21.0-32.0) mmol/L BUN 19 H (7.0-18.0) mg/dL Creatinine 0.7 L (0.8-1.3) mg/dL Est Cr Clr Drug Dosing 118.90 mL/min Estimated GFR (MDRD) > 60.0 ml/min Glucose 120 H (74-106) mg/dL Hemoglobin A1c (4.5 - 6.2) % Calcium 8.4 L (8.5-10.1) mg/dL Triglycerides 99 (0-200) mg/dL Cholesterol 125 (50-200) mg/dL LDL Cholesterol, Calc 55 L (60-180) mg/dL VLDL Cholesterol 19 (5-55) mg/dL HDL Cholesterol 50 (40-60) mg/dL Cholesterol/HDL Ratio 2.5 L (3.3-6.0) 04/15/21 Range/Units 06:20 WBC (4.0-11.0) K/uL RBC (4.50-5.90) M/uL Hgb (13.0-17.0) g/dL Hct (38.0-50.0) % MCV (80.0-98.0) fL MCH (27.0-32.0) pg MCHC (31.0-37.0) g/dL RDW Std Deviation (28.0-62.0) fl RDW Coeff of Kassie (11.0-15.0) % Plt Count (150-400) K/uL MPV (7.40-12.00) fL Neut % (Auto) (48.0-80.0) % Lymph % (Auto) (16.0-40.0) % Saline % (Auto) (0.0-15.0) % Eos % (Auto) (0.0-7.0) % Baso % (Auto) (0.0-1.5) % Neut # (Auto) (1.4-5.7) K/uL Lymph # (Auto) (0.6-2.4) K/uL Saline # (Auto) (0.0-0.8) K/uL Eos # (Auto) (0.0-0.7) K/uL Baso # (Auto) (0.0-0.1) K/uL Nucleated RBC % /100WBC Nucleated RBCs # K/uL Sodium (136-148) mmol/L Potassium (3.5-5.1) mmol/L Chloride (98-107) mmol/L Carbon Dioxide (21.0-32.0) mmol/L BUN (7.0-18.0) mg/dL Creatinine (0.8-1.3) mg/dL Est Cr Clr Drug Dosing mL/min Estimated GFR (MDRD) ml/min Glucose (74-106) mg/dL Hemoglobin A1c 6.5 H (4.5 - 6.2) % Calcium (8.5-10.1) mg/dL Triglycerides (0-200) mg/dL Cholesterol (50-200) mg/dL LDL Cholesterol, Calc (60-180) mg/dL VLDL Cholesterol (5-55) mg/dL HDL Cholesterol (40-60) mg/dL Cholesterol/HDL Ratio (3.3-6.0) Med Orders - Current: Current Medications Apixaban (Apixaban 5 Mg Tab) 5 mg PO BID [facility] Last Admin: 04/15/21 08:46 Dose: 5 mg Documented by: Atorvastatin Calcium (Atorvastatin 40 Mg Tab) 80 mg PO BEDTIME [facility] Last Admin: 04/14/21 20:44 Dose: 80 mg Documented by: Furosemide (Furosemide 20 Mg Tab) 20 mg PO DAILY [facility] Last Admin: 04/15/21 08:46 Dose: 20 mg Documented by: Discontinued Medications Aspirin (Aspirin 325 Mg Tab) 325 mg PO DAILY [facility] Last Admin: 11/17/21 08:20 Dose: 325 mg Documented by: Iopamidol (Iopamidol 755 Mg/Ml 500 Ml Multipack Bottle) 100 ml IVPUSH ONETIME STA Stop: 04/12/21 17:23 Last Admin: 04/12/21 17:22 Dose: 100 ml Documented by:
--- NOTE | 2021-04-19 10:25 | ECHO ---
EXAM DATE: 04/12/21 PATIENT'S AGE: 65 The ECHO report has been scanned into Last [employer] Left and can be seen in this patient's EMR (Electronic Medical Record) under the REPORTS section. The report has also been scanned into PACS. AI
== END 2021-04-15 18:53 | disposition home or self-care (01) | DRG 66 ==
LOC: MW.ED 16:38 → MW.MS 18:27
PROVIDERS: ADMIT Internal Medicine; ATTEND Internal Medicine
DX: I63.231 Cerebral infarction due to unspecified occlusion or stenosis of right carotid arteries (principal); R20.0 Anesthesia of skin; R27.0 Ataxia, unspecified; I50.9 Heart failure, unspecified; F17.210 Nicotine dependence, cigarettes, uncomplicated; G83.24 Monoplegia of upper limb affecting left nondominant side; R29.702 NIHSS score 2; R29.810 Facial weakness; Z20.822 Contact with and (suspected) exposure to COVID-19; I67.1 Cerebral aneurysm, nonruptured; I11.0 Hypertensive heart disease with heart failure; Z95.0 Presence of cardiac pacemaker; Z79.899 Other long term (current) drug therapy; Z71.6 Tobacco abuse counseling; I48.91 Unspecified atrial fibrillation
CPT/HCPCS: 36415; 70450; 70450-26; 70496; 70496-26; 70498; 70498-26; 71045; 71045-26; 80048; 80053; 80061; 80305-QW; 80307; 83036; 83690; 83735; 84100; 85025; 85027; 93005; 93306; 97161-GP; 97165-GO; 99285-25; A9270-GY; Q9967; U0002

== ENCOUNTER 2021-05-25 11:26 | Emergency (ER) | payer OTHER, BC ==
--- NOTE | 2021-05-25 11:32 | EDM.PDOC ---
ED HPI GENERAL MEDICAL PROBLEM - General Chief Complaint: Upper Extremity Injury/Pain Stated Complaint: fell hit head Time Seen by Provider: 05/25/21 11:29 - History of Present Illness INITIAL COMMENTS - FREE TEXT/NARRATIVE: History of present illness: [] Patient had a trip and fall. He had no LOC. He hit his right jaw. He also hit his right elbow. He has pain in his right shoulder. Patient is on Eliquis recently because of a stroke. He says it was not dysarthria or stroke related with a simple trip and fall. Patient has significant pain in the right jaw and with motion he has significant pain in the right elbow. Pains are sharp. Associated with skin abrasion on the right jawline on the right elbow. Review of systems: As per history of present illness and below otherwise all systems reviewed and negative. Past medical history: As per history of present illness and as reviewed below otherwise noncontributory. Surgical history: As per history of present illness and as reviewed below otherwise noncontri butory. Social history: No reported history of drug or alcohol abuse. Family history: As per history of present illness and as reviewed below otherwise noncontributory. Physical exam: Constitutional - well developed, well-nourished and in no acute distress HEENT -tender right mandible at the the ramus and abrasion over the same normocephalic, no evidence of trauma - external nose and mouth normal - no mass in neck and no JVD - mucosae moist EYES - full EOM, PERRL, no icterus - no evidence of inflammation, injection, or drainage Respiratory - no respiratory distress, equal bilateral expansion, lungs clear to auscultation and no abnormal lung sounds Cardiovascular - Regular Rhythm with S1 and S2 appreciated and no murmur, gallop or rub. GI - abdomen soft without distension or organomegaly - normal bowel sounds - no guard or rebound Musculoskeletal tender right elbow. He is tender right over the olecranon process. Tender right shoulder and pain with range of motion. No gross deformity of long bones or joints - no tenderness, swelling or edema Neurologic -motor sensory intact in the distal right upper extremity alert and oriented times four - CN II-XII grossly intact - motor sensory and coordination symmetrically normal Psychiatric - appropriate mood and affect with normal thought content Hematologic - No petechiae or purpura - mucosa appropriate color and sclera not pale - normal nail bed color and refill Integument -abrasion over the right olecranon. No rash or evidence of trauma - normal turgor-second exam shows that with him the abrasion is a 6 mm laceration that full-thickness but the patient refused suture. Diagnostics: [] Therapeutics: [] Impression: [] Plan: [] Definitive disposition and diagnosis as appropriate pending reevaluation and review of above. - Related Data Allergies Allergy/AdvReac Type Severity Reaction Status Date / Time No Known Allergies Allergy Verified 04/13/21 21:21 Home Meds: Home Meds Cyanocobalamin (Vitamin B-12) [Vitamin B-12] 1,000 mcg PO DAILY 04/12/21 [History] Furosemide [Lasix] 20 mg PO DAILY 04/12/21 [History] Metoprolol Succinate 50 mg PO DAILY 04/12/21 [History] lisinopriL [Lisinopril] 10 mg PO DAILY 04/12/21 [History] Multivit-Min/FA/Lycopen/Lutein [Centrum Silver Tablet] 2 tab PO DAILY 04/13/21 [History] Apixaban [Eliquis] 5 mg PO BID #60 tablet 04/15/21 [Rx] atorvaSTATin [Lipitor] 40 mg PO BEDTIME #30 tablet 04/15/21 [Rx] Spironolactone [Aldactone] 0.5 dose PO DAILY 05/25/21 [History] Past Medical History Cardiovascular History: Reports: Afib, Heart Failure, Pacemaker Gastrointestinal History: Reports: Colon Polyp - Infectious Disease History Infectious Disease History: Reports: None - Past Surgical History Other GI Surgeries/Procedures: gastric bypass surgery Social & Family History - Family History Family Medical History: No Pertinent Family History - Caffeine Use Caffeine Use: Reports: Coffee Review of Systems - Review of Systems Review Of Systems: Comprehensive ROS is negative, except as noted in HPI. ED EXAM, GENERAL - Physical Exam Exam: See Below Free Text/Narrative:: My physical exam is in the HPI Course - Vital Signs Last Recorded V/S: Last Vital Signs Temp 36.1 C 05/25/21 11:29 Pulse 61 05/25/21 11:34 Resp 20 05/25/21 11:29 BP 134/80 05/25/21 11:34 Pulse Ox 93 L 05/25/21 11:34 Departure - Departure Time of Disposition: 12:48 Disposition: Home, Self-Care 01 Condition: Good Clinical Impression: Contusion of jaw, Contusion of right shoulder, initial encounter, Contusion of right elbow, initial encounter, Abrasion of right elbow, initial encounter, Laceration of right elbow, Chronic anticoagulation - Discharge Information Instructions: Elbow Contusion, [id number], Nonsutured Laceration Care Referrals: PCP,None [Primary Care Provider] - Forms: ED Department Discharge Additional Instructions: Keep the abrasion and laceration clean. Ice pack and limit use as required according to the amount of pain you have. [facility] - Primary Care [address] [place] [id number] [id number] The following information is given to patients seen in the emergency department who are being discharged to home. This information is to outline your options for follow-up care. We provide all patients seen in our emergency department with a follow-up referral. The need for follow-up, as well as the timing and circumstances, are variable depending upon the specifics of your emergency department visit. If you don't have a primary care physician on staff, we will provide you with a referral. We always advise you to contact your personal physician following an emergency department visit to inform them of the circumstance of the visit and for follow-up with them and/or the need for any referrals to a consulting specialist. The emergency department will also refer you to a specialist when appropriate. This referral assures that you have the opportunity for follow-up care with a specialist. All of these measure are taken in an effort to provide you with optimal care, which includes your follow-up. Under all circumstances we always encourage you to contact your private physician who remains a resource for coordinating your care. When calling for follow-up care, please make the office aware that this follow-up is from your recent emergency room visit. If for any reason you are refused follow-up, please contact the [facility] Emergency Department at and asked to speak to the emergency department charge nurse. Sepsis Event Note (ED) - Focused Exam Vital Signs: Vital Signs Temp Pulse Resp BP Pulse Ox 05/25/21 11:34 61 134/80 93 L 05/25/21 11:29 36.1 C 63 20 146/73 H 93 L
--- NOTE | 2021-05-25 12:07 | CT ---
INDICATION: Fall, on blood thinners TECHNIQUE: Head CT without contrast. COMPARISON: April 13, 2021 FINDINGS: CSF spaces: Within normal limits for age. Brain parenchyma: There are nonspecific low attenuation white matter changes consistent with chronic microvascular disease. No sign of mass, hemorrhage, or midline shift. Skull base and calvarium: The visualized paranasal sinuses and mastoid air cells demonstrate no acute or significant findings. The visualized orbits are grossly unremarkable. No skull fractures. There is intracranial atherosclerosis. 1. No acute findings. 2. Nonspecific white matter disease, typical of chronic microvascular disease. Please note that all CT scans at this facility use dose modulation, iterative reconstruction, and/or weight-based dosing when appropriate to reduce radiation dose to as low as reasonably achievable. Dictated by Jaquelin Roldan MD @ 05/25/2021 12:06:06 PM (Electronically Signed)
--- NOTE | 2021-05-25 12:12 | CT ---
INDICATION: Fall, hit right cheek TECHNIQUE: CT maxillofacial without contrast. COMPARISON: None FINDINGS: Facial bones: No fractures or bone lesions. Specifically the nasal bones, temporomandibular joints, maxilla and mandible appear intact. Orbits and globes: Unremarkable. Sinuses: Mild thickening the bilateral ethmoid and sphenoid sinus mucosa. Soft tissues: Unremarkable. IMPRESSION: No sign of acute injury. Please note that all CT scans at this facility use dose modulation, iterative reconstruction, and/or weight-based dosing when appropriate to reduce radiation dose to as low as reasonably achievable. Dictated by Jaquelin Roldan MD @ 05/25/2021 12:10:18 PM (Electronically Signed)
--- NOTE | 2021-05-25 12:43 | CR ---
Indication: Fall, injury Technique: Two views right shoulder Comparison: None Findings: Bones: Alignment is normal. No fractures or bone lesions. Joint spaces: Unremarkable. Soft tissues: Partial visualization of a left-sided pacemaker. Air underneath the right hemidiaphragm likely due to colonic interposition. This is unchanged compared to a chest radiograph April 12, 2021. Impression: No acute abnormality. Dictated by Jaquelin Roldan MD @ 05/25/2021 12:41:49 PM (Electronically Signed)
--- NOTE | 2021-05-25 12:45 | CR ---
Indication: Fall Technique: Three views right elbow Comparison: None Findings: Bones: Alignment is normal. No fractures or bone lesions. Joint spaces: Unremarkable. Soft tissues: Two small oval osseous densities near the radial head. These have sclerotic margins and likely due to remote injury. Impression: No acute abnormality. Dictated by Jaquelin Roldan MD @ 05/25/2021 12:44:48 PM (Electronically Signed)
[2021-05-25] MEDS ORDERED: Diphtheria,Pertussis(Acell),Tetanus Vaccine 0.5 ML Syringe IM ONE (12:54)
== END 2021-05-25 13:22 | disposition home or self-care (01) ==
LOC: MW.ED 11:26
DX: S51.011A Laceration without foreign body of right elbow, initial encounter (principal); S40.011A Contusion of right shoulder, initial encounter; S00.83XA Contusion of other part of head, initial encounter; I48.91 Unspecified atrial fibrillation; I50.9 Heart failure, unspecified; Z23 Encounter for immunization; Z86.73 Personal history of transient ischemic attack (TIA), and cerebral infarction without residual deficits; Z79.01 Long term (current) use of anticoagulants; Z79.899 Other long term (current) drug therapy; W01.198A Fall on same level from slipping, tripping and stumbling with subsequent striking against other object, initial encounter
CPT/HCPCS: 70450; 70450-26; 70486; 70486-26; 73030-26-RT; 73030-RT; 73080-26-RT; 73080-RT; 90471; 90715; 99284-25

== ENCOUNTER 2024-07-13 10:23 | Emergency (ER) | payer BC, OTHER ==
[2024-07-13] MEDS ORDERED: Sodium Chloride 0.9% 2.5 ML Syringe FLUSH PRN (10:31)
[2024-07-13] MEDS ORDERED: Sodium Chloride 0.9% 10 ML Syringe FLUSH PRN (10:31)
[2024-07-13 10:42] LABS: BASOPHILS ABSOLUTE AUTO 0.04 K/uL (0.00-0.20); BASOPHILS PERCENT AUTO 0.6 % (0.0-1.0); EOSINOPHILS ABSOLUTE AUTO 0.25 K/uL (0.00-0.45); EOSINOPHILS PERCENT AUTO 3.8 % (0.0-6.0); HEMATOCRIT 38.8 % (42.0-52.0); IMMATURE GRAN ABSOLUTE AUTO 0.01 K/uL (0.00-0.05); IMMATURE GRAN PERCENT AUTO 0.2 % (0.0-0.4); LYMPHOCYTES ABSOLUTE AUTO 1.14 K/uL (1.00-4.80); LYMPHOCYTES PERCENT AUTO 17.4 % (24.0-44.0); MEAN CORPUSCULAR HEMOGLOBIN 26.1 pg (28.0-32.0); MEAN CORPUSCULAR HGB CONC 30.9 g/dL (32.0-36.0); MEAN CORPUSCULAR VOLUME 84.3 fL (83.0-99.0); MEAN PLATELET VOLUME 9.9 fL (9.4-12.4); MONOCYTES ABSOLUTE AUTO 0.58 K/uL (0.00-0.80); MONOCYTES PERCENT AUTO 8.9 % (0.0-8.0); NEUTROPHILS ABSOLUTE AUTO 4.52 K/uL (1.80-7.70); NEUTROPHILS PERCENT AUTO 69.1 % (41.0-71.0); PLATELET COUNT,PLT 199 K/uL (150-400); WHITE BLOOD CELL COUNT,WBC 6.54 K/uL (3.9-11.3)
[2024-07-13 10:56] LABS: INR 1.05 (0.86-1.11)
[2024-07-13 11:15] LABS: ALANINE AMINOTRANSFERASE,ALT 29 IU/L (14-63); ALBUMIN 3.5 g/dL (3.4-5.0); ALKALINE PHOSPHATASE 67 U/L (46-116); ASPARTATE AMNIOTRANSFERASE,AST 13 IU/L (15-37); BILIRUBIN TOTAL 0.3 mg/dL (0.2-1.0); BLOOD UREA NITROGEN,BUN 24 mg/dL (7.0-18.0); CHLORIDE,CL 106 mmol/L (98-107); CREATININE 1.1 mg/dL (0.8-1.3); EST CRCL DRUG DOSING (CG) 71.63 mL/min; GLUCOSE RANDOM 141 mg/dL (74-106); LIPASE 27 U/L (16-77); MAGNESIUM 2.3 mg/dL (1.8-2.4); POTASSIUM,K 4.9 mmol/L (3.5-5.1); PRO B-TYPE NATRIUR PEPT,BNPPRO 444 pg/mL (0-125); SODIUM,NA 146 mmol/L (136-148); TSH ULTRASENSITIVE 0.61 uIU/mL (0.36-3.74)
[2024-07-13 11:16] LABS: ESTIMATED GFR 73 mL/min (>60)
[2024-07-13 11:17] LABS: ETHANOL BLOOD MEDICAL < 3.0 mg/dL
[2024-07-13 11:30] LABS: LACTIC ACID 1.5 mmol/L (0.4-2.0)
[2024-07-13 12:14] LABS: AMPHETAMINES SCREEN, URINE NEGATIVE (CUTOFF=500); BARBITURATE SCREEN,URINE NEGATIVE (CUTOFF=200); BENZODIAZEPINES SCREEN,URINE NEGATIVE (CUTOFF=150); BUPRENORPHINE SCREEN,URINE NEGATIVE (CUTOFF=10); METHADONE SCREEN, URINE NEGATIVE (CUTOFF=200); METHAMPHETAMINES SCREEN, URINE NEGATIVE (CUTOFF=500); OXYCODONE SCREEN,URINE NEGATIVE (CUT0FF=100); PCP SCREEN,URINE NEGATIVE (CUTOFF=25); THC SCREEN,URINE 20 NG/ML NEGATIVE (CUTOFF=50)
[2024-07-13 12:51] LABS: APPEARANCE,URINE CLEAR; BILIRUBIN,URINE NEGATIVE (NEGATIVE); COLOR,URINE YELLOW; GLUCOSE,URINE NEGATIVE (NEGATIVE); KETONES,URINE NEGATIVE (NEGATIVE); LEUKOCYTE ESTERASE,URINE NEGATIVE (NEGATIVE); NITRITE,URINE NEGATIVE (NEGATIVE); OCCULT BLOOD,URINE NEGATIVE (NEGATIVE); PH,URINE 6.5 (5.0-8.0); PROTEIN,URINE NEGATIVE (NEGATIVE); UROBILINOGEN,URINE 0.2 EU/dL (<2.0)
[2024-07-13] MEDS: Iopamidol 755 MG/ML 500 ML Multipack Bottle IVPUSH STA (13:22)
[2024-07-13] MEDS: Clopidogrel 75 MG Tab PO ONE (13:36)
[2024-07-13] MEDS: Aspirin 81 MG Tab.Chew PO ONE (13:36)
== END 2024-07-13 14:58 ==
LOC: MW.ED 10:23
DX: I63.9 Cerebral infarction, unspecified (principal); I50.9 Heart failure, unspecified; Z95.0 Presence of cardiac pacemaker; Z79.899 Other long term (current) drug therapy; Z79.82 Long term (current) use of aspirin; Z75.8 Other problems related to medical facilities and other health care
CPT/HCPCS: 36415; 70450; 70496; 70498; 71045; 80053; 80305; 80307; 81003; 82140; 82947; 83605; 83690; 83735; 83880; 84443; 84484; 85025; 85610; 87040; 87428; 93005; 99285; A9270; Q9967; 93010

== ENCOUNTER 2024-07-31 19:30 | Observation (INO) | payer SELFPAY ==
[2024-07-31] MEDS: Sodium Chloride 0.9% 2.5 ML Syringe FLUSH PRN (20:11)
[2024-07-31] MEDS: Ondansetron 4 MG/2 ML SDV IVPUSH STA (20:11)
[2024-07-31] MEDS: Sodium Chloride 0.9% 10 ML Syringe FLUSH PRN (20:11)
[2024-07-31 20:23] LABS: BASOPHILS ABSOLUTE AUTO 0.05 K/uL (0.00-0.20); BASOPHILS PERCENT AUTO 0.6 % (0.0-1.0); EOSINOPHILS ABSOLUTE AUTO 0.23 K/uL (0.00-0.45); EOSINOPHILS PERCENT AUTO 2.6 % (0.0-6.0); HEMATOCRIT 39.9 % (42.0-52.0); HEMOGLOBIN 12.8 g/dL (14.0-18.0); IMMATURE GRAN ABSOLUTE AUTO 0.02 K/uL (0.00-0.05); IMMATURE GRAN PERCENT AUTO 0.2 % (0.0-0.4); LYMPHOCYTES ABSOLUTE AUTO 1.31 K/uL (1.00-4.80); LYMPHOCYTES PERCENT AUTO 14.6 % (24.0-44.0); MEAN CORPUSCULAR HEMOGLOBIN 26.2 pg (28.0-32.0); MEAN CORPUSCULAR HGB CONC 32.1 g/dL (32.0-36.0); MEAN CORPUSCULAR VOLUME 81.8 fL (83.0-99.0); MONOCYTES ABSOLUTE AUTO 0.68 K/uL (0.00-0.80); MONOCYTES PERCENT AUTO 7.6 % (0.0-8.0); NEUTROPHILS ABSOLUTE AUTO 6.71 K/uL (1.80-7.70); NEUTROPHILS PERCENT AUTO 74.4 % (41.0-71.0); PLATELET COUNT,PLT 229 K/uL (150-400); RED BLOOD CELL COUNT 4.88 M/uL (4.52-5.90)
[2024-07-31 20:46] LABS: A/G RATIO 1.1 (0.9-1.6); ALBUMIN 3.9 g/dL (3.4-5.0); BILIRUBIN TOTAL 0.3 mg/dL (0.2-1.0); CALCIUM 9.3 mg/dL (8.5-10.1); CARBON DIOXIDE,CO2 23.5 mmol/L (21.0-32.0); CREATININE 1.2 mg/dL (0.8-1.3); EST CRCL DRUG DOSING (CG) 65.66 mL/min; POTASSIUM,K 4.2 mmol/L (3.5-5.1); PROTEIN TOTAL,TP 7.4 g/dL (6.4-8.2)
[2024-07-31] MEDS: Promethazine 25 MG/ML SDV IM STA (20:47)
[2024-07-31 21:28] LABS: APPEARANCE,URINE CLEAR; BILIRUBIN,URINE NEGATIVE (NEGATIVE); COLOR,URINE YELLOW; GLUCOSE,URINE NEGATIVE (NEGATIVE); KETONES,URINE TRACE mg/dL (NEGATIVE); LEUKOCYTE ESTERASE,URINE NEGATIVE (NEGATIVE); NITRITE,URINE NEGATIVE (NEGATIVE); OCCULT BLOOD,URINE NEGATIVE (NEGATIVE); PH,URINE 5.5 (5.0-8.0); PROTEIN,URINE 30 mg/dL (NEGATIVE); UROBILINOGEN,URINE 0.2 EU/dL (<2.0)
[2024-07-31] MEDS: Sodium Chloride 0.9% 500 ML IV STA (21:33)
[2024-07-31 21:36] LABS: RBC,URINE NONE SEEN (0-2/HPF); WBC,URINE 0-2 (0-5/HPF)
[2024-07-31 21:37] LABS: BACTERIA,URINE FEW (NEGATIVE); EPITHELIAL CELLS,URINE FEW (NONE-FEW)
[2024-08-01] MEDS: Iopamidol 755 MG/ML 500 ML Multipack Bottle IVPUSH STA (06:55)
[2024-08-01] MEDS ORDERED: Ondansetron 4 MG/2 ML SDV IVPUSH PRN (10:07)
[2024-08-01] MEDS: Sodium Chloride 0.9% 1,000 ML IV SCH (12:30)
[2024-08-01] MEDS ORDERED: diphenhydrAMINE 25 MG Cap PO PRN (19:30)
[2024-08-01] MEDS ORDERED: Rosuvastatin 10 MG Tab PO SCH (21:00)
[2024-08-02 05:51] LABS: BASOPHILS ABSOLUTE AUTO 0.06 K/uL (0.00-0.20); EOSINOPHILS ABSOLUTE AUTO 0.29 K/uL (0.00-0.45); EOSINOPHILS PERCENT AUTO 4.6 % (0.0-6.0); HEMATOCRIT 40.5 % (42.0-52.0); HEMOGLOBIN 12.4 g/dL (14.0-18.0); IMMATURE GRAN ABSOLUTE AUTO 0.02 K/uL (0.00-0.05); IMMATURE GRAN PERCENT AUTO 0.3 % (0.0-0.4); LYMPHOCYTES ABSOLUTE AUTO 1.33 K/uL (1.00-4.80); LYMPHOCYTES PERCENT AUTO 21.3 % (24.0-44.0); MEAN CORPUSCULAR HEMOGLOBIN 26.2 pg (28.0-32.0); MEAN CORPUSCULAR HGB CONC 30.6 g/dL (32.0-36.0); MEAN CORPUSCULAR VOLUME 85.4 fL (83.0-99.0); MEAN PLATELET VOLUME 10.8 fL (9.4-12.4); NEUTROPHILS ABSOLUTE AUTO 4.05 K/uL (1.80-7.70); NEUTROPHILS PERCENT AUTO 64.8 % (41.0-71.0); PLATELET COUNT,PLT 174 K/uL (150-400); RED BLOOD CELL COUNT 4.74 M/uL (4.52-5.90); WHITE BLOOD CELL COUNT,WBC 6.25 K/uL (3.9-11.3)
[2024-08-02 06:28] LABS: A/G RATIO 1.1 (0.9-1.6); ALBUMIN 3.3 g/dL (3.4-5.0); BILIRUBIN TOTAL 0.4 mg/dL (0.2-1.0); CALCIUM 8.4 mg/dL (8.5-10.1); CARBON DIOXIDE,CO2 29.6 mmol/L (21.0-32.0); CREATININE 0.9 mg/dL (0.8-1.3); EST CRCL DRUG DOSING (CG) 87.54 mL/min; MAGNESIUM 1.6 mg/dL (1.8-2.4); PROTEIN TOTAL,TP 6.4 g/dL (6.4-8.2)
[2024-08-02] MEDS: Spironolactone 25 MG Tab PO SCH (08:02)
[2024-08-02] MEDS: Rosuvastatin 10 MG Tab PO SCH (08:02)
[2024-08-02] MEDS: Metoprolol Succinate 50 MG Tab.ER PO SCH (08:02)
[2024-08-02] MEDS: Furosemide 20 MG Tab PO SCH (08:02)
[2024-08-02] MEDS: Magnesium Sulf/Wat 2 GM/50 mL 2 GM in Premix Bag 1 BAG IV ONE (08:03)
== END 2024-08-02 13:12 | disposition home or self-care (01) ==
LOC: MW.ED 19:30 → MW.MS 08-01 08:13 → OBSVTOIN 08-01 08:13 → INTOOBSV 08-01 08:13 → MW.MS 08-01 10:04
PROVIDERS: ADMIT Family Medicine; ATTEND Family Medicine
DX: R11.2 Nausea with vomiting, unspecified (principal); I50.9 Heart failure, unspecified; I48.91 Unspecified atrial fibrillation; Z98.84 Bariatric surgery status; Z95.0 Presence of cardiac pacemaker; Z79.01 Long term (current) use of anticoagulants; Z79.82 Long term (current) use of aspirin; Z79.899 Other long term (current) drug therapy
CPT/HCPCS: 36415; 74021; 74177; 80053; 81001; 82947; 83605; 83690; 83735; 84100; 85025; 96361; 96365; 96372; 96375; 99285; A9270; G0378; J2405; J2550; J3475; J7030; J7040; Q9967; 96374; 99222; 99238; 99284